=== PATIENT | female | born 1975 | race Caucasian/White ===

== ENCOUNTER 2019-03-03 10:21 | Day surgery (SDC) | payer OTHER ==
[2019-02-28 12:14] LABS: Absolute Lymphocytes (CBC) 1.8 K/uL (0.7-4.9); Basophils % 0.5 % (0-1.3); Hematocrit 35.8 % (36.0-45.0); Lymphocytes % 25.7 % (15.3-44.8); RBC Red Blood Cell Count 3.99 M/uL (3.86-4.86)
[2019-02-28 12:20] LABS: Urine Appearance CLEAR; Urine Bilirubin NEGATIVE (NEG); Urine Blood NEGATIVE (NEG); Urine Color YELLOW; Urine Glucose NEGATIVE (NEG); Urine Protein NEGATIVE (NEG); Urine Specific Gravity 1.015 (1.005-1.030)
[2019-02-28 12:40] LABS: Urine Microscopic Reflex NO UMIC
[2019-03-03] MEDS ORDERED: Ringers Lactate 1,000 ML IV ONE ×3 (10:25→16:50)
[2019-03-03] MEDS ORDERED: SCOPOLAMINE HYDROBROMIDE PATCH TD ONE (10:25)
[2019-03-03] MEDS ORDERED: FENTANYL CITR 250 MCG/5 ML ONE (12:27)
[2019-03-03] MEDS ORDERED: LIDOCAINE 2% MPF 5 ML VIAL ONE (12:27)
[2019-03-03] MEDS ORDERED: PROPOFOL 200 MG/20 ML VIAL IV ONE (12:27)
[2019-03-03] MEDS ORDERED: MIDAZOLAM HCL 2 MG/2 ML INJ ONE (12:27)
[2019-03-03] MEDS ORDERED: NS 0.9% VIAL 10 ML ONE (12:27)
[2019-03-03] MEDS ORDERED: ROCURONIUM 50 MG/5 ML VIAL IV ONE (12:27)
[2019-03-03] MEDS ORDERED: dexAMETHasone 10 MG/ML VIAL ONE (12:30)
[2019-03-03] MEDS ORDERED: KETOROLAC 30 MG/ML INJ ONE (12:30)
[2019-03-03] MEDS ORDERED: ONDANSETRON 4 MG/2 ML VIAL ONE (12:31)
[2019-03-03] MEDS ORDERED: BUPIVACAINE 0.25% PF 30 ML VIAL ONE ×2 (12:34→15:06)
[2019-03-03] MEDS: CEFAZOLIN/SWI 2gm 2 GM/20 ML SYR ONE ×2 (12:41→13:02)
[2019-03-03] MEDS ORDERED: MEPERIDINE HCL 25 MG/0.5 ML ONE (13:45)
[2019-03-03] MEDS ORDERED: ESMOLOL HCL 10 ML IV ONE (13:55)
[2019-03-03] MEDS ORDERED: GLYCOPYRROLATE 0.2 MG/ML SYR ONE (14:44)
[2019-03-03] MEDS ORDERED: NEOSTIGMINE 1 MG/ML -10 ML VIAL ONE (14:44)
[2019-03-03] MEDS ORDERED: PROMETHAZINE 25 MG/ML VIAL IV PRN (15:22)
[2019-03-03] MEDS ORDERED: HYDROCODONE/APAP 5/325 MG TAB PO PRN (15:22)
[2019-03-03] MEDS ORDERED: MEPERIDINE HCL 25 MG/0.5 ML IM PRN (15:22)
[2019-03-03] MEDS ORDERED: IBUPROFEN 200 MG TAB PO PRN (15:22)
[2019-03-03] MEDS ORDERED: HYDROCODONE/APAP 5/325 MG TAB ONE (16:59)
[2019-03-03 17:44] VITALS: O2SAT 100
[2019-03-03 19:06] VITALS: BP 114/69; TEMP 98.6
--- NOTE | 2019-03-04 02:27 | OP ---
Date of Procedure: 03/03/2019 Surgeon: Rosio Mcgee MD Shelter Director: Vidhi Figueroa. Preoperative Diagnoses: Menorrhagia, dysmenorrhea, failed conservative medical treatment. Postoperative Diagnoses: Menorrhagia, dysmenorrhea, failed conservative medical treatment, endometri osis, and stage I uterine prolapse with point C at -3. Procedures Performed: Total laparoscopic hysterectomy, bilateral salpingectomy, endometriosis excisi on, and uterosacral suspension. Anesthesia: General endotracheal. Specimens: Uterus, bilateral tubes, left uterosacral endometriosis, left ovarian endometriosis. Findings: Endometriosis present in the left uterosacral in the last 1/5 of the uterosacral ligament. Once this was excised, it was detached from the apex as well as a noted drop in the level 1 support with point C at -3 when patient was under anesthesia. So, plan was to excise the uterosacral endome triosis with part of the uterosacral ligament then reattached this to the vaginal apex and then perfo rm a bilateral suspension. There was endometriosis in the left ovary. There was an endometrioma that had to be excised. There was adhesions of the left ovary to the left lateral wall lateral and superior to the ureter. Right ovary appeared to be normal. Tubes unremarkable. Indications For Procedure: Patient is a 43-year-old evaluated for heavy bleeding, endometrial sampli ng negative, tried Mirena failed after medical management options were used. Since all these had zoey led, she was sent for possible hysterectomy consultation and she was offered an ablation with possibl e laparoscopy or hysterectomy. Description Of Procedure: The patient proceeded with hysterectomy consent and then she was brought t o the OR. Ancef 2 g were given preop. Patient was taken back to OR and placed in supine fashion on the operating table. Arms were tucked by the side. She was placed in dorsal lithotomy. Pelvic exam was performed. Slightly enlarged uterus. No cul-de-sac nodularity was noted and appeared to be danae e. Abdomen, vulva, vagina, and perineum were prepped and draped in a sterile fashion. John was placed to drain the bladder. SCDs were started before the start of the case. The John was attached for re trograde filling in the usual manner. Then, VCare was introduced into the uterus without any problem s. This area was then draped and 1 cm infraumbilical incision was made with a scalpel using the open laparoscopy technique. Fascia was incised. Marcaine 0.25% was injected. A total of 35 mL was injec magen. Then, fascia was incised, tagged with 0 Vicryl sutures on both sides and S-retractor was placed and Beau introduced. Site of entry was checked, unremarkable. Upper abdominal surface was unrema rkable as well. No endometriosis. The patient was placed in Trendelenburg position. A 5 mm left lo wer quadrant port, 10 mm suprapubic ports were placed after local injection with Marcaine. Later on, the right lower quadrant side port was also placed after Marcaine was injected. The bowel was retra cted superiorly with the help of a 3-0 Monocryl stitch in the left upper quadrant with the Kenneth-Tho enrico needle. The mesosalpinx was opened up, tube taken, round ligament taken. Anterior broad ligament opened up a ll the way to the level of the bladder flap and the bladder flap taken all the way to the opposite si de. A needlepoint monopolar device was taken. Greg Storz needle was taken to excise the endometriosis. The endometriosis on the uterosacral ligament was circumscribed with a stitch with the monopolar need le and then it was excised completely till normal tissue was seen. It was infiltrating the uterosacr al. Next, on the left side, there was a left ovarian endometrium was present and there were adhesion s of this to the lateral sidewall. The adhesions were taken down with sharp dissection with scissors . Then, the endometrium was excised with the help of the monopolar needle. The entire wall of the e ndometrium was made sure that it was excised. There was excellent hemostasis on the bed of the ovary . Then, the posterior peritoneum was opened up to the area where the dissection was performed for the e nd of the excision. Then, the broad ligament was taken down to skeletonize the vessels on the left s ashley. Similar dissection was performed on the opposite side and taken down tube, round ligament, ante rior and posterior broad ligaments and skeletonizing the vessels. Then, the bladder flap was raised by entering the vesicovaginal space sharply with the help of the monopolar hook blade on the anterior vaginal wall. Once the bladder was pushed down inferiorly at least 2.5 cm then went on to take down the vessels on both sides, first on the right. After the vessels, the cardinal ligaments were taken down. Similarly, on the opposite side, similar dissection was performed. Circumferential colpotomy for the removal of the specimen. The specimen was retrieved through the vagina. Lap sponge stuffed in a glove was placed in the vaginal area for pneumo occlusion. Thorough irrigation and suction were performed in the vaginal cuff and this was closed with the help of 2-0 V-Loc in a continuous running fashion. There was a 2-layer closure of the vaginal cuff starti ng with the vaginal epithelial layer, subepithelium. This was run from right to the left and then ta ingris back to close the fascial edge of the posterior rectovaginal septum and the anterior precervical fascia. All these were attached together with a continuous running V-Loc and once this was ended, 2 more sutures were taken to prevent unwinding. The uterosacral suspension was performed with the help of a 0 PDS suture starting at the distal part of the cut uterosacral on the left side. This was lax ed and this was taken up and attached to the posterior rectovaginal septum and the anterior precervic al fascia. Then, this was tied together on the opposite side. The uterosacral ligament was taken wi th the help of the 0 PDS and 2 bites were taken through this in a continuous running fashion. Then, posterior and anterior wall of the vagina with the fascia were taken and this was tied down. The vag inal apex was reattached to the uterosacral. There was a good suspension and point C was at -8. The culdoplasty was performed by bringing the peritoneum together in a continuous running 3-0 Monocry l stitch and the anterior peritoneum was brought down on top of this as well to retroperitonealize th e vaginal cuff closure and conceal all the V-Loc. Once this was done, there was excellent closure. No evidence of electrical, mechanical, or thermal injury to the ureters. Bowel appeared to be normal . The bowel stitch was taken out. Then, all the trocars were removed, injected with Marcaine and cl osed with 0 Vicryl for the fascia at the umbilicus and simple 0 Vicryl stitch for the suprapubic site as well. Cystoscopy was then performed with 17-Kazakh sheath, 30-degree lens, normal saline. Both ureteric orifices were well visualized and there were strong jets of urine from both. All the instru ments were removed. Instrument, needle, and sponge counts were done and were correct at the end of t he case. The patient tolerated the procedure well. Toradol was given. Patient was woken up and she was taken to the PACU in stable condition. She has a followup appointment in 1 week. CHRISTINA/ОЛЕГ Voice ID: [id number] Report ID: [id number]
== END 2019-03-03 19:10 | disposition home or self-care (01) ==
LOC: OR 10:21
PROVIDERS: ATTEND Obstetrics & Gynecology
PROC: 0UT74ZZ Resection of Bilateral Fallopian Tubes, Percutaneous Endoscopic Approach (ICD-10-PCS; 2019-03-03)
PROC: 0UB44ZZ Excision of Uterine Supporting Structure, Percutaneous Endoscopic Approach (ICD-10-PCS; 2019-03-03)
PROC: 0UB14ZZ Excision of Left Ovary, Percutaneous Endoscopic Approach (ICD-10-PCS; 2019-03-03)
PROC: 0USG7ZZ Reposition Vagina, Via Natural or Artificial Opening (ICD-10-PCS; 2019-03-03)
PROC: 0UT94ZZ Resection of Uterus, Percutaneous Endoscopic Approach (ICD-10-PCS; principal; 2019-03-03 11:30)
DX: N92.1 Excessive and frequent menstruation with irregular cycle (principal); N94.5 Secondary dysmenorrhea; N81.2 Incomplete uterovaginal prolapse; D50.0 Iron deficiency anemia secondary to blood loss (chronic); N83.8 Other noninflammatory disorders of ovary, fallopian tube and broad ligament; N84.1 Polyp of cervix uteri; D25.9 Leiomyoma of uterus, unspecified; N83.12 Corpus luteum cyst of left ovary; I49.9 Cardiac arrhythmia, unspecified; K21.9 Gastro-esophageal reflux disease without esophagitis; F32.9 Major depressive disorder, single episode, unspecified; Z83.3 Family history of diabetes mellitus
CPT/HCPCS: 58571; 58662; 57283; 85025; 36415; 86900; 86850; 81025; 86901; 88305; 88307; 81003; J2704; J2710; J2250; J3010; J1100; J2175; J0690; J7120 ×3; J2405

== ENCOUNTER 2022-01-08 07:04 | Day surgery (SDC) | payer OTHER ==
[2022-01-07 09:32] LABS: Absolute Lymphocytes (CBC) 1.3 K/uL (0.7-4.9); Hematocrit 36.2 % (36.0-45.0); Lymphocytes % 23.7 % (15.3-44.8); MCV 88.2 fL (80-100); MPV 8.8 fL (7.6-11.3); RBC Red Blood Cell Count 4.11 M/uL (3.86-4.86)
[2022-01-07 09:42] LABS: SARS-CoV-2 Antigen Rapid Res Negative (Negative)
[2022-01-07 09:48] LABS: Bilirubin Direct 0.1 mg/dL (0-0.2); Bilirubin Total 0.5 mg/dL (0.2-1.0)
[2022-01-08] MEDS ORDERED: CEFOXITIN SODIUM 1 GM/VIAL ONE (07:17)
[2022-01-08] MEDS ORDERED: Ringers Lactate 1,000 ML IV ONE (07:17)
[2022-01-08] MEDS ORDERED: ACETAMINOPHEN 500 MG TAB ONE (08:30)
[2022-01-08] MEDS ORDERED: CELECOXIB 100 MG CAPSULE ONE (08:31)
[2022-01-08] MEDS ORDERED: LIDOCAINE 1% MPF 5 ML VIAL ONE ×2 (08:33→09:40)
[2022-01-08] MEDS ORDERED: ROCURONIUM 50 MG/5 ML VIAL IV ONE ×2 (08:33→09:40)
[2022-01-08] MEDS ORDERED: FENTANYL CITR 100 MCG/2 ML ONE ×2 (08:33→09:40)
[2022-01-08] MEDS ORDERED: propofoL 200 MG/20 ML VIAL IV ONE ×2 (08:33→09:40)
[2022-01-08] MEDS ORDERED: MIDAZOLAM HCL 2 MG/2 ML INJ ONE ×2 (08:33→09:40)
[2022-01-08] MEDS ORDERED: dexAMETHasone 10 MG/ML VIAL ONE (09:56)
[2022-01-08] MEDS ORDERED: dexAMETHasone 4 MG/ML VIAL ONE (09:56)
--- NOTE | 2022-01-08 10:38 | P.BOP ---
Preoperative diagnosis: sympt cholelithasis, acute cholecystitis, biliary dyskinesia Postoperative diagnosis: same Primary procedure: Laparoscopic cholecystectomy Casing In Line Feeder: GEETA JARRELL (INSURANCE UNDERWRITING ASSISTANT) Estimated blood loss: <10cc Specimen: gb Findings: as above Anesthesia: General Complications: None Transferred to: Recovery Room Condition: Good
[2022-01-08] MEDS ORDERED: GLYCOPYRROLATE 0.2 MG/ML SYR ONE (10:42)
[2022-01-08] MEDS ORDERED: NEOSTIGMINE 1 MG/ML -10 ML VIAL ONE (10:42)
[2022-01-08] MEDS ORDERED: KETOROLAC 30 MG/ML INJ ONE (10:46)
[2022-01-08] MEDS: HYDROMORPHONE HCL 1 MG/ML INJ ONE ×2 (10:55→11:01)
[2022-01-08] MEDS ORDERED: MEPERIDINE HCL 25 MG/ML SYR ONE (11:07)
[2022-01-08 11:10] VITALS: O2SAT 100
[2022-01-08] MEDS ORDERED: HYDROMORPHONE HCL 1 MG/ML INJ ONE (11:32)
[2022-01-08 11:56] VITALS: BP 111/63; TEMP 96.8
[2022-01-08] MEDS ORDERED: ONDANSETRON 4 MG/2 ML VIAL ONE (12:22)
--- NOTE | 2022-01-08 21:57 | OP ---
Date of Procedure: 01/08/2022 Surgeon: Demar Garibay MD Certified Medical Coder: Bella Benedict. Preoperative Diagnoses: Symptomatic cholelithiasis, acute cholecystitis, and biliary dyskinesia. Postoperative Diagnoses: Symptomatic cholelithiasis, acute cholecystitis, and biliary dyskinesia. Procedure: Laparoscopic cholecystectomy. Estimated Blood Loss: Less than 10 mL. Specimen: Gallbladder. Anesthesia: General plus local. Complications: None. Indications: This is a case of a 46-year-old patient who comes to us with above diagnoses. Fully ex plained the benefits, alternatives, and risks of laparoscopic possible open cholecystectomy, which in clude, but are not limited to infection, bleeding, damage to adjacent structures, anesthesia complica tion, choledocholithiasis, bile leak, pancreatitis, RI, and . She also understands this may not relieve her symptoms. She might need more than one surgical intervention. She understood, signed a consent. Procedure In Detail: The patient was brought to the operating room, placed supine position. Anesthe aleyda was done without complication. Abdominal area was prepped and draped in a sterile fashion. Jimmy paulina 0.5% was injected for local anesthetic, followed by sharp incision of the skin in the periumbili ranjeet region. Incision was carried down to fascia, which was opened under direct vision. Peritoneum w as encountered and opened under direct vision. Vicryl #1 placed inside the fascia. Beau trocar wa s carefully introduced. Pneumoperitoneum was obtained. I placed 3 more trocars under direct visuali zation in the right upper quadrant, 5 mm each one of them. This allowed me to put a grasper in the f undus of the gallbladder and another grasper in the infundibulum. I retracted the gallbladder in the inferolateral fashion exposing the triangle of Calot, obtaining critical view. The cystic duct and cystic artery were clearly isolated, freed circumferentially and a connection between those and the g allbladder were clearly identified. I proceeded to ligate those by using at least 3 clips proximal, 1 clip distal, ligation in middle. Same was done with the cystic artery. No bile leak. No bleeding . The gallbladder was removed from liver using Bovie cauterizer and removed from abdominal cavity us ing Endo Catch through the umbilical incision. It was inspected once again. No bile leak. No bleed ing. At that moment, I proceeded to remove the trocars under direct vision, deflated the pneumoperit oneum, closed the fascia with 1 Vicryl, irrigated subcutaneous tissue, closed that with 3-0 chromic a nd skin in a subcuticular fashion with 3-0 chromic and Steri-Strips on top. Sponge count and instrum ent counts were correct. The patient tolerated the procedure well. The patient was sent to recovery in stable condition. Disposition: Home. Activity: As tolerated. No heavy lifting. Followup: Follow up in my office in 1 week. Call for appointment at [phone]. Discharge Instructions: Keep area dry for 48 hours, then may shower. Keep Steri-Strips intact. Medications: See orders. HM/MODL Voice ID: [id number] Report ID: [id number]
== END 2022-01-08 12:32 | disposition home or self-care (01) ==
LOC: OR 07:04
PROVIDERS: ATTEND Surgery
PROC: 0FT44ZZ Resection of Gallbladder, Percutaneous Endoscopic Approach (ICD-10-PCS; principal; 2022-01-08 09:15)
DX: K80.00 Calculus of gallbladder with acute cholecystitis without obstruction (principal); K82.8 Other specified diseases of gallbladder; Z20.822 Contact with and (suspected) exposure to COVID-19
CPT/HCPCS: 85025; 80048; 36415; 82150; 80076; 88304; 83690; 87811; 47562; J2704; J1100 ×2; J2710; J2250; J3010; J2175; J1170; J7120; J0694; J2405